=== PATIENT | female | born 1985 | race Asian ===

== ENCOUNTER 2025-01-12 14:38 | Outpatient (AMB) | payer OTHER, SELFPAY ==
--- NOTE | 2025-01-12 14:45 | MHC.OFFVIS ---
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 She had episodes of palpitations in the past and went to emergency department in [facility]. Her has been had the ECG strips from there and the rhythm appeared to be SVT. She was treated as SVT with IV verapamil. She has not had any significant episodes of palpitations recently. She did have an episode of left-sided chest pain for which she went to the emergency department. This pain was pleuritic in nature. She had workup including troponin, D-dimer done which was negative. Her thyroid profile was also normal at that time. She was discharged home and was told that she potentially has musculoskeletal pain which I agree with. She has not had further chest pains since then. Denying any other complaints currently. Not taking any regular medications but does take some homeopathic medicine for palpitations. [facility] Medical History (Updated 01/12/25 @ 15:26 by Gordon De Leon MD) Appendix abscess Family History (Updated 01/12/25 @ 14:52 by Joanna Maki CMA) Father Stented coronary artery Social History (Updated 01/12/25 @ 14:52 by Joanna Maki CMA) Alcohol intake: never Patient Tobacco Use Status: Never used Tobacco Review of Systems Const Denies chills, Denies fatigue, Denies fever(s), Denies frequent falls, Denies weakness, Denies weight gain and Denies weight loss ENT Denies dizziness Card Denies chest pain, Denies leg edema, Denies lightheadedness, Denies palpitations, Denies dyspnea, Denies dyspnea on exertion and Denies orthopnea Resp Denies cough, Denies dyspnea and Denies dyspnea on exertion GI Denies bloating and Denies change in bowel habits Musc Denies muscle weakness, Denies numbness and Denies tingling Neuro Denies dizziness, Denies frequent falls, Denies numbness, Denies tingling and Denies weakness Endo Denies fatigue and Denies palpitations Physical Exam Vital Signs: Last Vital Signs Pulse 95 01/12/25 14:47 BP 134/64 01/12/25 14:47 BMI result Body Mass Index 24.4 GENERAL APPEARANCE: in no acute distress, pleasant. NECK: no carotid bruit, no jugular venous distention. SKIN: no suspicious lesions, warm and dry. HEART: no murmurs, regular rate and rhythm. LUNGS: clear to auscultation bilaterally. ABDOMEN: soft, nontender. EXTREMITIES: no edema. PERIPHERAL PULSES: equal. NEUROLOGIC: No gross deficits, AAO X 3 Office Procedures EKG Details: Sinus rhythm 92 beats per minute, normal ECG, QTC 437 milliseconds. [id number], Complete Assessment & Plan Assessment & Plan (1) SVT (supraventricular tachycardia): Code(s): I47.10 - Supraventricular tachycardia, unspecified Category: Medical Plan Pleasant 39 year female with supraventricular tachycardia. She had ECG strips from [place] which clearly are showing SVT. She also responded to IV verapamil. She is describing vagal maneuvers being done by the physicians in [place] 2. She had echocardiography couple of years ago which was essentially normal. I have given her the options of medical management versus ablation. Currently with infrequent symptoms she wishes to wait. I have taught her simple vagal maneuvers to see if she can break these episodes on her own at home. If she had frequent episodes then she will reach out to us when we will consider ablation. I will give her low-dose verapamil to be used as needed in case she has an episode. She understands that this may not work and she may have to go to emergency department. Thank you for allowing me to participate in the care of your patient. Please feel free to contact me if you have any questions. Medications: New verapamil 40 mg PO BID PRN 60 tabs 0RF palpitations I47.10 - Supraventricular tachycardia, unspecified Coding Level of Care Code New Pt Level 4 (43942) Diagnoses SVT (supraventricular tachycardia) I47.10 CPT Codes EKG - CPT: 15466-[id number], Complete ([id number])
[2025-01-12 14:47] VITALS: BP 134/64; PULSE 95; BMI 24.4
--- OUTSIDE RECORDS SUMMARY | 2025-01-12 16:45 | XMS_ITS | Clinical Summary ---
Author Organization [facility] Address [address] [place] [address] Phone Care Team Providers Care Ep Specialist Name Role Phone Physician, Pcp Unknown Primary Care Provider Nahed vailable Allergies No known active allergies Medications No known medications Active Problems No known active problems Encounters Date Type Department Care Team Description 12/27/2024 3:18 AM EST - 12/27/2024 10:47 AM EST Emergency [facility] Emergency [address] [place] [address] [phone] Mamadou Ford MD Palpitations (Primary Dx) Discharge Disposition: Home or Self Care 12/25/2024 9:07 PM EST - 12/25/2024 11:07 PM EST [facility] Emergency [address] [place] [phone] Discharge Disposition: Left Against Medical Advice from Last 3 Months Medical History Medical History Date Comments Palpitations Social History Tobacco Use Types Packs/Day Years Used Date Smoking Tobacco: Never Smokeless Tobacco: Never Tobacco Cessation:Counseling Given: Not Answered Alcohol Use Standard Drinks/Week Comments Never 0 (1 standard drink = 0.6 oz pur e alcohol) Comments Unknown Sex and Gender Information Value Date Recorded Sex Assigned at Female 12/25/2024 11:02 PM EST Legal Sex Female 9:07 PM EST Gender Identity Female 12/25/2024 11:02 PM EST Sexual Orientation Straight 12/25/2024 11 :02 PM EST Obstetrics History Last Filed Vital Signs Vital Sign Reading Time Taken Comments Blood Pressure 111/78 12/27/2024 10:38 AM EST Pulse 102 12/27/2024 10:38 AM EST Temperature 36.8 ??C (98.2 ??F) 12/27/2024 9:43 AM ES T Respiratory Rate 22 12/27/2024 10:38 AM EST Oxygen Saturation 98% 12/27/2024 10:38 AM EST Inhaled Oxygen Concentration - - Weight 81.6 kg (180 lb) 12/25/2024 9:53 PM EST Height 157.5 cm (5' 2 ) 12/25/2024 9:53 PM EST Body Mass Index 32.92 12/25/2024 9:53 PM EST Plan of Treatment Health Maintenance Due Date Last Done Comments Breast Cancer Screening 1983 DTaP,Tdap,and Td Vaccines (1 - Tdap) 2002 Hepatitis B Vaccines (1 of 3 - 19+ 3-dose series) 2002 Cervical Cancer Screening: P ap Smear 2004 COVID-19 Vaccine ( - 2023-2 5 season) 2024 Influenza Vaccine (#1) 2024 Depression Screening 12/26/2024 HIV Screening 12/26/2024 Hepatitis C Screening 12/26/2024 Social Influencers of Health Screening 12/26/2024 HIB Vaccines Aged Out No longer eligi ble based on patient's age to complete this topic HPV Vaccines Aged Out No longer eligi ble based on patient's age to complete this topic Hepatitis A Vaccines Aged Out No long er eligible based on patient's age to complete this topic IPV Vaccines Aged Out No longer eligi ble based on patient's age to complete this topic MMR Vaccines Aged Out No longer eligi ble based on patient's age to complete this topic Meningococcal ACWY Vaccine Aged Out N o longer eligible based on patient's age to complete this topic Meningococcal B Vacine Aged Out No lo nger eligible based on patient's age to complete this topic Pneumococcal Vaccine: Pediat rics (0 to 5 Years) and At-Risk Patients (6 to 64 Years) Aged Out No longer eligible b ased on patient's age to complete this topic RSV Immunization Patients Un noe 20 months Aged Out No longer eligible b ased on patient's age to complete this topic Varicella Vaccines Aged Out No longer eligible based on patient's age to complete this topic Procedures Procedure Name Priority Date/Time Associated Diagnosis Comments ECG ANNOTATED 12/29/2024 XR CHEST 2 VIEWS STAT 12/27/2024 6:20 AM EST D-DIMER STAT 12/27/2024 4:26 AM EST BASIC METABOLIC PANEL Routine 12/26/2024 5:49 PM EST THYROID STIMULATING HORMONE WITH REFLEX TO FREE T4 AND FREE T3 STAT Add-on 12/26/2024 5:49 PM EST CBC WITH AUTO DIFFERENTIAL STAT 12/26/2024 5:49 PM EST B-TYPE NATRIURETIC PEPTIDE STAT 12/26/2024 5:49 PM EST MAGNESIUM STAT 12/26/2024 5:49 PM EST LIPASE STAT 12/26/2024 5:49 PM EST CBC AND DIFFERENTIAL STAT 12/26/2024 5:49 PM EST TROPONIN I HIGH SENSITIVITY STAT 12/26/2024 5:49 PM EST ECG 12-LEAD STAT 12/26/2024 5:43 PM EST ECG ANNOTATED 12/26/2024 XR CHEST 2 VIEWS STAT 12/25/2024 9:48 PM EST CBC WITH AUTO DIFFERENTIAL STAT 12/25/2024 9:31 PM EST MAGNESIUM STAT 12/25/2024 9:31 PM EST LIPASE STAT 12/25/2024 9:31 PM EST COMPREHENSIVE METABOLIC PANEL STAT 12/25/2024 9:31 PM EST CBC AND DIFFERENTIAL STAT 12/25/2024 9:31 PM EST TROPONIN I HIGH SENSITIVITY STAT 12/25/2024 9:31 PM EST ECG 12-LEAD STAT 12/25/2024 9:25 PM EST from Last 3 Months Results * ECG-Annotated (12/29/2024) Only the most recent of2 resultswithin the time period is included. us Provider Onbase MD ECG ORDERABLES Final Result * XR Chest 2 Views (12/27/2024 6:20 AM EST) Only the most recent of2 resultswithin the time period is included. Anatomical Region Laterality Modality Body Radiographic Brit ging 12/27/2024 8:56 AM EST Impressions 12/27/2024 8:57 AM EST No evidence of active pulmonary disease. No significant change from the prior study. -------- FINAL REPORT -------- Dictated By: Haley Paz Dictated Date: 12/27/2024 08:56 ET Assigned Physician: Haley Paz Reviewed and Electronically Signed By: Haley Paz Signed Date: 12/27/2024 08:57 ET Workstation ID: [id number] Transcribed By: Self Edit Transcribed Date: 12/27/2024 08:56 ET Narrative 12/27/2024 8:57 AM EST INDICATION: Chest pain FINDINGS: Two views of the chest were obtained. Compared to study from December 25, 2024. Lung lopez are mildly hypoinflated but clear. Cardiomediastinal silhouette is normal in size and shape. Bony structures are within normal limits for the patient's age. Procedure Note Haely Paz MD - 12/27/2024 INDICATION: Chest pain FINDINGS: Two views of the chest were obtained. Compared to study fromDecember 25, 2024. Lung lopez are mildly hypoinflated but clear. Cardiomediastinal silhouette is normal in size and shape. Bony structures are within normal limits for the patient's age. IMPRESSION: No evidence of active pulmonary disease. No significant change from theprior study. -------- FINAL REPORT -------- Dictated By: Haley Paz Dictated Date: 12/27/2024 08:56 ET Assigned Physician: Haley Paz Reviewed and Electronically Signed By: Haley Paz Signed Date: 12/27/2024 08:57 ET Workstation ID: [id number] Transcribed By: Self Edit Transcribed Date: 12/27/2024 08:56 ET Shakeel Yancey MD IMG XR PROCEDURES Final Result * D-dimer, quantitative (12/27/2024 4:26 AM EST) [facility] D-Dimer, Quant (D-DU) 194 <=230 ng/mL DDU LAB COAGULATION METHOD 12/27/2024 5:25 AM EST [facility] Blood Venous blood specimen / Unknown Venipuncture / Unknown 12/27/2024 4:26 AM EST 12/27/2024 5:04 AM EST Narrative [facility] - 12/27/2024 5:25 AM EST D-Dimer <230 ng/mL (D-Dimer units) is the threshold for exclusion of DVT/PE. D-Dimer may be elevated in: Critically ill, severely infected, trauma patients, DIC, acute CVA, acute SD, unstable angina, AF, old age, , and smoking. D-Dimer may be decreased with: Initiation of heparin therapy and oral anticoagulants. Mamadou Ford MD LAB BLOOD ORDERABLES Final Result [facility] [address] [place] [address], * Troponin I high sensitivity (12/26/2024 5:49 PM EST) Only the most recent of2 resultswithin the time period is included. [facility] High Sensitivity Troponin I <3 <=54 ng/L LAB CHEMISTRY METHOD 12/26/2024 6:22 PM EST [facility] Blood Venous blood specimen / Unknown Venipuncture / Unknown 12/26/2024 5:49 PM EST 12/26/2024 5:54 PM EST Narrative [facility] - 12/26/2024 6:22 PM EST High levels of biotin in samples may falsely decrease hsTroponin values. ??Use caution when interpreting hsTroponin results in patients taking biotin who exhibit renal impairment (eGFR <60) or in patients taking more than 20 mg/day of biotin. Shakeel Yancey MD LAB BLOOD ORDERABLES Final Resu lt Performing Organization Address [facility]/ZIP Co de Phone Number [facility] [address] [place] [address], [place] [phone] * Thyroid stimulating hormone with reflex to free t4 and free t3 (TSH Reflex) (12/26/2024 5:49 PM EST) TSH 2.90 0.40 - 4.00 mcIU/mL LAB CHEMISTRY METHOD 12/27/2024 4:14 AM EST [facility] Blood Venous blood specimen / Unknown Venipuncture / Unknown 12/26/2024 5:49 PM EST 12/26/2024 5:54 PM EST Mamadou Ford MD LAB BLOOD ORDERABLES Final Result Performing Organization Address [facility] Co de Phone Number [facility] [address] [place] [address], [place] [phone] * (ABNORMAL) CBC auto differential (12/26/2024 5:49 PM EST) Only the most recent of2 resultswithin the time period is included. WBC 9.5 4.8 - 10.8 K/mcL LAB HEMETOLOGY METHOD 12/26/2024 6:04 PM EST [facility] RBC 4.40 3.80 - 4.80 M/mcL LAB HEMETOLOGY METHOD 12/26/2024 6:04 PM EST [facility] Hemoglobin 13.1 11.5 - 16.0 g/dL LAB HEMETOLOGY METHOD 12/26/2024 6:04 PM [facility] Hematocrit 41.0 35.0 - 47.0 % LAB HEMETOLOGY METHOD 12/26/2024 6:04 PM [facility] MCV 92.8 79.0 - 98.0 FL LAB HEMETOLOGY METHOD 12/26/2024 6:04 PM [facility] MCH 29.6 27.0 - 32.0 pcg LAB HEMETOLOGY METHOD 12/26/2024 6:04 PM [facility] MCHC 32.0 32.0 - 37.0 g/dL LAB HEMETOLOGY METHOD 12/26/2024 6:04 PM [facility] RDW 13.0 11.0 - 15.0 % LAB HEMETOLOGY METHOD 12/26/2024 6:04 PM [facility] Platelets 302 130 - 400 K/mcL LAB HEMETOLOGY METHOD 12/26/2024 6:04 PM [facility] MPV 10.4 7.0 - 11.0 FL LAB HEMETOLOGY METHOD 12/26/2024 6:04 PM [facility] NRBC 0.0 <1.0 % LAB HEMETOLOGY METHOD 12/26/2024 6:04 PM [facility] NRBC Absolute 0.00 <0.10 K/mcL LAB HEMETOLOGY METHOD 12/26/2024 6:04 PM [facility] Neutrophils Relative 65.2 % LAB HEMETOLOGY METHOD 12/26/2024 6:04 PM [facility] Lymphocytes Relative 26.2 % LAB HEMETOLOGY METHOD 12/26/2024 6:04 PM [facility] Monocytes Relative 4.2 % LAB HEMETOLOGY METHOD 12/26/2024 6:04 PM [facility] Eosinophils Relative 3.5 % LAB HEMETOLOGY METHOD 12/26/2024 6:04 PM EST [facility] Basophils Relative 0.5 % LAB HEMETOLOGY METHOD 12/26/2024 6:04 PM [facility] Immature Granulocytes Relative 0.4 % LAB HEMETOLOGY METHOD 12/26/2024 6:04 PM [facility] Neutrophils Absolute 6.15 1.50 - 7.00 K/mcL LAB HEMETOLOGY METHOD 12/26/2024 6:04 PM EST [facility] Lymphocytes Absolute 2.48 1.00 - 5.00 K/mcL LAB HEMETOLOGY METHOD 12/26/2024 6:04 PM [facility] Monocytes Absolute 0.40 0.20 - 1.00 K/mcL LAB HEMETOLOGY METHOD 12/26/2024 6:04 PM [facility] Eosinophils Absolute 0.33 0.00 - 0.50 K/mcL LAB HEMETOLOGY METHOD 12/26/2024 6:04 PM EST [facility] Basophils Absolute 0.05 0.00 - 0.20 K/mcL LAB HEMETOLOGY METHOD 12/26/2024 6:04 PM [facility] Immature Granulocytes Absolute 0.04(H) 0.00 - 0.03 K/mcL LAB HEMETOLOGY METHOD 12/26/2024 6:04 PM [facility] Blood Venous blood specimen / Unknown Venipuncture / Unknown 12/26/2024 5:49 PM EST 12/26/2024 5:54 PM EST us Shakeel B Bc WARD LAB BLOOD ORDERABLES Final Resu lt [facility] [address] [place] [address], * B-type natriuretic peptide (12/26/2024 5:49 PM EST) BNP 7 <=100 pcg/mL LAB CHEMISTRY METHOD 12/26/2024 6:33 PM EST [facility] Blood Venous blood specimen / Unknown Venipuncture / Unknown 12/26/2024 5:49 PM EST 12/26/2024 5:54 PM EST Shakeel Norbert Yancey MD LAB BLOOD ORDERABLES Final Resu lt Performing Organization Address City/[facility]/ZIP Co de Phone Number [facility] [address] [place] [address], [place] [phone] * Magnesium (12/26/2024 5:49 PM EST) Only the most recent of2 resultswithin the time period is included. Magnesium 2.3 1.9 - 2.6 mg/dL LAB CHEMISTRY METHOD 12/26/2024 6:38 PM EST [facility] Blood Venous blood specimen / Unknown Venipuncture / Unknown 12/26/2024 5:49 PM EST 12/26/2024 5:54 PM EST [facility] LAB BLOOD ORDERABLES Final Resu lt Performing Organization Address [facility] Co de Phone Number [facility] [address] [place] [address], [place] [phone] * Lipase (12/26/2024 5:49 PM EST) Only the most recent of2 resultswithin the time period is included. Lipase 39 13 - 75 unit/L LAB CHEMISTRY METHOD 12/26/2024 6:38 PM EST [facility] Blood Venous blood specimen / Unknown Venipuncture / Unknown 12/26/2024 5:49 PM EST 12/26/2024 5:54 PM EST Shakeeljanet Yancey MD LAB BLOOD ORDERABLES Final Resu lt [facility] [address] [place] [address], * (ABNORMAL) Basic metabolic panel (12/26/2024 5:49 PM EST) Sodium 137 133 - 145 mmol/L LAB CHEMISTRY METHOD 12/27/2024 6:37 AM [facility] Potassium 3.8 3.5 - 5.5 mmol/L LAB CHEMISTRY METHOD 12/27/2024 6:37 AM [facility] Chloride 107 96 - 110 mmol/L LAB CHEMISTRY METHOD 12/27/2024 6:37 AM [facility] CO2 21 21 - 32 mmol/L LAB CHEMISTRY METHOD 12/27/2024 6:37 AM [facility] Anion Gap 9 3 - 11 LAB CHEMISTRY METHOD 12/27/2024 6:37 AM [facility] Glucose 126(H) 70 - 100 mg/dL LAB CHEMISTRY METHOD 12/27/2024 6:37 AM [facility] BUN 10 5 - 25 mg/dL LAB CHEMISTRY METHOD 12/27/2024 6:37 AM [facility] Creatinine 0.77 0.50 - 1.10 mg/dL LAB CHEMISTRY METHOD 12/27/2024 6:37 AM [facility] eGFR 100 >=60 mL/min/1. 73m2 LAB CHEMISTRY METHOD 12/27/2024 6:37 AM [facility] Comment:Calculation based on the??Chronic Kidney Disease Epidemiology Collaboration (CKD-EPI) equation refit??without adjustment for race. BUN/Creatinine Ratio 13.0 LAB CHEMISTRY METHOD 12/27/2024 6:37 AM [facility] Calcium 9.3 8.5 - 10.5 mg/dL LAB CHEMISTRY METHOD 12/27/2024 6:37 AM [facility] Blood Venous blood specimen / Unknown Venipuncture / Unknown 12/26/2024 5:49 PM EST 12/26/2024 5:54 PM EST Mamadou Ford MD LAB BLOOD ORDERABLES Final Result Performing Organization Address [facility]/ZIP Co de Phone Number [facility] [address] [place] [address], [place] [phone] * ECG 12 lead (12/26/2024 5:43 PM EST) Only the most recent of2 resultswithin the time period is included. Ventricular Rate ECG 87 BPM GEMUSE Atrial Rate 87 BPM GEMUSE P-R Interval 144 ms GEMUSE QRS Duration 74 ms GEMUSE Q-T Interval 358 ms GEMUSE QTc 430 ms GEMUSE P Wave [place] 62 degrees GEMUSE R [place] 68 degrees GEMUSE T [place] 53 degrees GEMUSE ECG Interpretation Normal sinus rhythm Normal ECG When compared with ECG of 25-DEC-2024 21:25, (unconfirmed) No significant change was found Confirmed by LIZA LUGO ([id number]) on 12/27/2024 3:21:13 PM GEMUSE 12/26/2024 5:43 PM EST 12/27/2024 3:21 PM EST Shakeel Yancey MD ECG ORDERABLES Final Result Performing Organization Address [facility] Co de Phone Number GEMUSE * (ABNORMAL) Comprehensive metabolic panel (12/25/2024 9:31 PM EST) Sodium 140 133 - 145 mmol/L LAB CHEMISTRY METHOD 12/25/2024 10:10 PM EST [facility] Potassium 3.9 3.5 - 5.5 mmol/L LAB CHEMISTRY METHOD 12/25/2024 10:10 PM EST [facility] Chloride 110 96 - 110 mmol/L LAB CHEMISTRY METHOD 12/25/2024 10:10 PM EST [facility] CO2 24 21 - 32 mmol/L LAB CHEMISTRY METHOD 12/25/2024 10:10 PM [facility] Anion Gap 6 3 - 11 LAB CHEMISTRY METHOD 12/25/2024 10:10 PM [facility] Glucose 111(H) 70 - 100 mg/dL LAB CHEMISTRY METHOD 12/25/2024 10:10 PM [facility] BUN 14 5 - 25 mg/dL LAB CHEMISTRY METHOD 12/25/2024 10:10 PM [facility] Creatinine 0.88 0.50 - 1.10 mg/dL LAB CHEMISTRY METHOD 12/25/2024 10:10 PM [facility] eGFR 85 >=60 mL/min/1. 73m2 LAB CHEMISTRY METHOD 12/25/2024 10:10 PM [facility] Comment:Calculation based on the??Chronic Kidney Disease Epidemiology Collaboration (CKD-EPI) equation refit??without adjustment for race. BUN/Creatinine Ratio 15.9 LAB CHEMISTRY METHOD 12/25/2024 10:10 PM [facility] Calcium 8.8 8.5 - 10.5 mg/dL LAB CHEMISTRY METHOD 12/25/2024 10:10 PM [facility] AST (SGOT) 19 10 - 42 unit/L LAB CHEMISTRY METHOD 12/25/2024 10:10 PM [facility] ALT (SGPT) 23 10 - 60 unit/L LAB CHEMISTRY METHOD 12/25/2024 10:10 PM [facility] Alkaline Phosphatase 60 42 - 121 unit/L LAB CHEMISTRY METHOD 12/25/2024 10:10 PM [facility] Total Protein 7.2 6.0 - 8.0 g/dL LAB CHEMISTRY METHOD 12/25/2024 10:10 PM [facility] Albumin 3.6 3.2 - 5.0 g/dL LAB CHEMISTRY METHOD 12/25/2024 10:10 PM [facility] Total Bilirubin 0.2 0.0 - 1.4 mg/dL LAB CHEMISTRY METHOD 12/25/2024 10:10 PM EST [facility] Blood Venous blood specimen / Unknown Venipuncture / Unknown 12/25/2024 9:31 PM EST 12/25/2024 9:47 PM EST us Davin Mak DO LAB BLOOD ORDERABLES Final Resu lt [facility] [address] [place] [address], from Last 3 Months Insurance MEDICAID - [place] Care Teams Ep Specialist Relationship Specialty Start Date End Date Physician, Pcp Unknown PCP - General 12/27/24
--- OUTSIDE RECORDS SUMMARY | 2025-01-12 16:45 | XMS_ITS | Encounter Summary ---
Author Organization [facility] Address [address] [place] [address] Care Team Providers Care Color Printer Operator Name Role Phone Physician, Pcp Unknown Primary Care Provider Nahed vailable Reason for Visit * Reason Comments Chest Pain Radiates down left a rm. X 3 hours Encounter Details Date Type Department Care Team (Late st Contact Info) Description 12/25/2024 9:07 PM EST - 12/25/2024 11:[address] [facility] Emergency [address] [place] [id number] Discharge Disposition: Left Against Medical Advice Social History Tobacco Use Types Packs/Day Years [...] Orientation Straight 12/25/2024 11 :02 PM EST documented as of this encounter Last Filed Vital Signs Vital Sign Reading Time Taken Comments Blood Pressure 111/74 12/25/2024 9:53 PM EST Pulse 102 12/25/2024 9:53 PM EST Temperature 36.6 ??C (97.9 ??F) 12/25/2024 9:53 PM ES T Respiratory Rate 18 12/25/2024 9:53 PM EST Oxygen Saturation 99% 12/25/2024 9:53 PM EST Inhaled Oxygen Concentration - - Weight 81.6 kg (180 lb) 12/25/2024 9:53 PM EST Height 157.5 cm (5' 2 ) 12/25/2024 9:53 PM EST Body Mass Index 32.92 12/25/2024 9:53 PM EST documented in this encounter Discharge Disposition Disposition Code Departure Means Destination Left Against Medical Advice documented in this encounter Progress Notes * Hector Gregg RN - 12/25/2024 9:47 PM EST Patient presents to the ER with her significant other, patient stating that she has been having left-sided chest pain that radiates to left arm for 3 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 Described that chest feels heavy especially when I take a deep breath I feels very heavy on my heart and feels heavy on my left arm too . Patient rated the pain at 7 out of 10 on 0-10 pain scale. Denies other symptoms. documented in this encounter Plan of Treatment Not on file documented as of this encounter Procedures Procedure Name Priority Date/Time Associated Diagnosis Comments ECG ANNOTATED 12/26/2024 XR CHEST 2 VIEWS STAT 12/25/2024 9:48 PM EST TROPONIN I HIGH SENSITIVITY STAT 12/25/2024 9:31 PM EST CBC WITH AUTO DIFFERENTIAL STAT 12/25/2024 9:31 PM EST CBC AND DIFFERENTIAL STAT 12/25/2024 9:31 PM EST MAGNESIUM STAT 12/25/2024 9:31 PM EST LIPASE STAT 12/25/2024 9:31 PM EST COMPREHENSIVE METABOLIC PANEL STAT 12/25/2024 9:31 PM EST ECG 12-LEAD STAT 12/25/2024 9:25 PM EST documented in this encounter Results * ECG-Annotated (12/26/2024) us Provider Onbase MD ECG ORDERABLES Final Result * XR Chest 2 Views (12/25/2024 9:48 PM EST) Anatomical Region Laterality Modality Body Radiographic Brit ging 12/26/2024 8:37 AM EST Impressions 12/26/2024 8:38 AM EST Normal examination. Code 01069 -------- FINAL REPORT -------- Dictated By: Jorge Luis Wilson Dictated Date: 12/26/2024 08:37 ET Assigned Physician: Jorge Luis Wilson Reviewed and Electronically Signed By: Jorge Luis Wilson Signed Date: 12/26/2024 08:38 ET Workstation ID: [id number] Transcribed By: Self Edit Transcribed Date: 12/26/2024 08:37 ET Narrative 12/26/2024 8:38 AM EST HISTORY: The patient is a 39-year-old female with chest pain. FINDINGS: PA and lateral radiographs of the chest, without previous for comparison, demonstrate normal appearance of the bony structures. The cardiac and mediastinal contours are within normal limits. The lungs and costophrenic angles are clear. Procedure Note Jorge Luis Wislon MD - 12/26/2024 HISTORY: The patient is a 39-year-old female with chest pain. FINDINGS: PA and lateral radiographs of the chest, without previous forcomparison, demonstrate normal appearance of the bony structures. Thecardiac and mediastinal contours are within normal limits. The lungs andcostophrenic angles are clear. IMPRESSION: Normal examination. Code 41079 -------- FINAL REPORT -------- Dictated By: Jorge Luis Wilson Dictated Date: 12/26/2024 08:37 ET Assigned Physician: Jorge Luis Wilson Reviewed and Electronically Signed By: Jorge Luis Wilson Signed Date: 12/26/2024 08:38 ET Workstation ID: [id number] Transcribed By: Self Edit Transcribed Date: 12/26/2024 08:37 ET us Davin Sergbrenda Mak DO IMG XR PROCEDURES Final Result * CBC auto differential (12/25/2024 9:31 PM EST) WBC 10.2 4.8 - 10.8 K/mcL LAB HEMETOLOGY METHOD 12/25/2024 9:[address] [facility] RBC 4.30 3.80 - 4.80 M/mcL LAB HEMETOLOGY METHOD 12/25/2024 9:[address] [facility] Hemoglobin 12.6 11.5 - 16.0 g/dL LAB HEMETOLOGY METHOD 12/25/2024 9:[address] [facility] Hematocrit 38.8 35.0 - 47.0 % LAB HEMETOLOGY METHOD 12/25/2024 9:[address] [facility] MCV 89.4 79.0 - 98.0 FL LAB HEMETOLOGY METHOD 12/25/2024 9:[address] [facility] MCH 29.0 27.0 - 32.0 pcg LAB HEMETOLOGY METHOD 12/25/2024 9:[address] [facility] MCHC 32.5 32.0 - 37.0 g/dL LAB HEMETOLOGY METHOD 12/25/2024 9:[address] [facility] RDW 13.1 11.0 - 15.0 % LAB HEMETOLOGY METHOD 12/25/2024 9:[address] [facility] Platelets 305 130 - 400 K/mcL LAB HEMETOLOGY METHOD 12/25/2024 9:[address] [facility] MPV 10.3 7.0 - 11.0 FL LAB HEMETOLOGY METHOD 12/25/2024 9:[address] [facility] NRBC 0.0 <1.0 % LAB HEMETOLOGY METHOD 12/25/2024 9:[address] [facility] NRBC Absolute 0.00 <0.10 K/mcL LAB HEMETOLOGY METHOD 12/25/2024 9:[address] [facility] Neutrophils Relative 64.0 % LAB HEMETOLOGY METHOD 12/25/2024 9:[address] [facility] Lymphocytes Relative 26.6 % LAB HEMETOLOGY METHOD 12/25/2024 9:[address] [facility] Monocytes Relative 5.4 % LAB HEMETOLOGY METHOD 12/25/2024 9:[address] [facility] Eosinophils Relative 3.4 % LAB HEMETOLOGY METHOD 12/25/2024 9:[address] [facility] Basophils Relative 0.3 % LAB HEMETOLOGY METHOD 12/25/2024 9:[address] [facility] Immature Granulocytes Relative 0.3 % LAB HEMETOLOGY METHOD 12/25/2024 9:[address] [facility] Neutrophils Absolute 6.51 1.50 - 7.00 K/mcL LAB HEMETOLOGY METHOD 12/25/2024 9:[address] [facility] Lymphocytes Absolute 2.71 1.00 - 5.00 K/mcL LAB HEMETOLOGY METHOD 12/25/2024 9:[address] [facility] Monocytes Absolute 0.55 0.20 - 1.00 K/mcL LAB HEMETOLOGY METHOD 12/25/2024 9:[address] [facility] Eosinophils Absolute 0.35 0.00 - 0.50 K/mcL LAB HEMETOLOGY METHOD 12/25/2024 9:[address] [facility] Basophils Absolute 0.03 0.00 - 0.20 K/mcL LAB HEMETOLOGY METHOD 12/25/2024 9:[address] [facility] Immature Granulocytes Absolute 0.03 0.00 - 0.03 K/mcL LAB HEMETOLOGY METHOD 12/25/2024 9:[address] [facility] Blood Venous blood specimen / Unknown Venipuncture / Unknown 12/25/2024 9:31 PM EST 12/25/2024 9:47 PM EST us Tae Hyong Aubree DO LAB BLOOD ORDERABLES Final Resu lt Performing Organization Address [facility]/ZIP Co de Phone Number [facility] [address] [place] [address], [place] [phone] * Troponin I high sensitivity (12/25/2024 9:31 PM EST) Pathologist [facility] High Sensitivity Troponin I <3 <=54 ng/L LAB CHEMISTRY METHOD 12/25/2024 10:09 PM EST [facility] Blood Venous blood specimen / Unknown Venipuncture / Unknown 12/25/2024 9:31 PM EST 12/25/2024 9:47 PM EST Narrative [facility] - 12/25/2024 10:09 PM EST High levels of biotin in samples may falsely decrease hsTroponin values. ??Use caution when interpreting hsTroponin results in patients taking biotin who exhibit renal impairment (eGFR <60) or in patients taking more than 20 mg/day of biotin. Davin Mak LAB BLOOD ORDERABLES Final Resu lt Performing Organization Address [facility] Co de Phone Number [facility] [address] [place] [address], [place] [phone] * Magnesium (12/25/2024 9:31 PM EST) [facility] Magnesium 2.3 1.9 - 2.6 mg/dL LAB CHEMISTRY METHOD 12/25/2024 10:10 PM EST [facility] Blood Venous blood specimen / Unknown Venipuncture / Unknown 12/25/2024 9:31 PM EST 12/25/2024 9:47 PM EST Davin Mak DO LAB BLOOD ORDERABLES Final Resu lt Performing Organization Address City/[facility]/ZIP Co de Phone Number [facility] [address] [place] [address], [place] [phone] * Lipase (12/25/2024 9:31 PM EST) Lipase 39 13 - 75 unit/L LAB CHEMISTRY METHOD 12/25/2024 10:[address] [facility] Blood Venous blood specimen / Unknown Venipuncture / Unknown 12/25/2024 9:31 PM EST 12/25/2024 9:47 PM EST us Davin Mak DO LAB BLOOD ORDERABLES Final Resu lt [facility] [address] [place] [address], * (ABNORMAL) Comprehensive metabolic panel (12/25/2024 9:31 PM EST) Sodium 140 133 - 145 mmol/L LAB CHEMISTRY METHOD 12/25/2024 10:[address] [facility] Potassium 3.9 3.5 - 5.5 mmol/L LAB CHEMISTRY METHOD 12/25/2024 10:[address] [facility] Chloride 110 96 - 110 mmol/L LAB CHEMISTRY METHOD 12/25/2024 10:[address] [facility] CO2 24 21 - 32 mmol/L LAB CHEMISTRY METHOD 12/25/2024 10:[address] [facility] Anion Gap 6 3 - 11 LAB CHEMISTRY METHOD 12/25/2024 10:[address] [facility] Glucose 111(H) 70 - 100 mg/dL LAB CHEMISTRY METHOD 12/25/2024 10:[address] [facility] BUN 14 5 - 25 mg/dL LAB CHEMISTRY METHOD 12/25/2024 10:[address] [facility] Creatinine 0.88 0.50 - 1.10 mg/dL LAB CHEMISTRY METHOD 12/25/2024 10:[address] [facility] eGFR 85 >=60 mL/min/1. 73m2 LAB CHEMISTRY METHOD 12/25/2024 10:[address] [facility] Comment:Calculation based on the??Chronic Kidney Disease Epidemiology Collaboration (CKD-EPI) equation refit??without adjustment for race. BUN/Creatinine Ratio 15.9 LAB CHEMISTRY METHOD 12/25/2024 10:[address] [facility] Calcium 8.8 8.5 - 10.5 mg/dL LAB CHEMISTRY METHOD 12/25/2024 10:[address] [facility] AST (SGOT) 19 10 - 42 unit/L LAB CHEMISTRY METHOD 12/25/2024 10:[address] [facility] ALT (SGPT) 23 10 - 60 unit/L LAB CHEMISTRY METHOD 12/25/2024 10:[address] [facility] Alkaline Phosphatase 60 42 - 121 unit/L LAB CHEMISTRY METHOD 12/25/2024 10:[address] [facility] Total Protein 7.2 6.0 - 8.0 g/dL LAB CHEMISTRY METHOD 12/25/2024 10:[address] [facility] Albumin 3.6 3.2 - 5.0 g/dL LAB CHEMISTRY METHOD 12/25/2024 10:[address] [facility] Total Bilirubin 0.2 0.0 - 1.4 mg/dL LAB CHEMISTRY METHOD 12/25/2024 10:[address] [facility] Blood Venous blood specimen / Unknown Venipuncture / Unknown 12/25/2024 9:31 PM EST 12/25/2024 9:47 PM EST us Davin Mak DO LAB BLOOD ORDERABLES Final Resu lt [facility] [address] [place] [address], [place] [phone] * ECG 12 lead (12/25/2024 9:25 PM EST) Ventricular Rate ECG 107 BPM GEMUSE Atrial Rate 107 BPM GEMUSE P-R Interval 132 ms GEMUSE QRS Duration 72 ms GEMUSE Q-T Interval 338 ms GEMUSE QTc 451 ms GEMUSE P Wave [place] 61 degrees GEMUSE R [place] 55 degrees GEMUSE T [place] 31 degrees GEMUSE ECG Interpretation Sinus tachycardia Possible Left atrial enlargement Borderline ECG No previous ECGs available Confirmed by LIZA LUGO ([id number]) on 12/27/2024 2:53:39 PM GEMUSE 12/25/2024 9:25 PM EST 12/27/2024 2:53 PM EST us Davin Mak DO ECG ORDERABLES Final Result GEMUSE documented in this encounter Visit Diagnoses Not on filedocumented in this encounter Orders EKG Orders Without Results Count Last Ordered D ate First Ordered Date ECG 12-LEAD 1 12/25/2024 documented in this encounter Care Teams Color Printer Operator Relationship Specialty Start Date End Date Physician, Pcp Unknown PCP - General 12/25/24 12/26/24 documented as of this encounter
--- OUTSIDE RECORDS SUMMARY | 2025-01-12 16:45 | XMS_ITS | Encounter Summary ---
Author Organization [facility] Address [address] [place] [address] Care Team Providers Care Process Trainer Name Role Phone Physician, Pcp Unknown Primary Care Provider Nahed vailable Reason for Visit * Reason Comments Chest Pain Pt was here last nig ht, pt reports chest pain is worsening and it radiates to her left hand. Encounter Details Date Type Department Care Team (Late st Contact Info) Description 12/27/2024 3:18 AM EST - 12/27/2024 10:47 AM EST Emergency [facility] Emergency [address] [place] [address] Mamadou Ford MD [address] [address] Palpitations (Primary Dx) Discharge Disposition: Home or Self Care Social History Tobacco Use Types Packs/Day Years Used Date Smoking Tobacco: Never Smokeless Tobacco: Never Alcohol Use Standard Drinks/Week Comments Never 0 [...] EST Inhaled Oxygen Concentration - - Weight - - Height - - Body Mass Index - - documented in this encounter Discharge Instructions * Attachments The following attachments cannot be sent through Care Everywhere. * Holter Monitoring (Taiwanese) * Palpitations (Taiwanese) documented in this encounter Discharge Disposition Disposition Code Departure Means Destination Comment s Home or Self Care Went over d/c instructions with patient. Voiced understanding about calling cardiology precious. Went over red flags/reasons to return back to ED. There we were no further questions at this time and pt ambulated out of department without difficulty. documented in this encounter Progress Notes * Ginger Steven RN - 12/26/2024 5:57 PM EST Pt reports mid sternal chest pain started yesterday . Pt reports pain started during normal adl . Pt reports pain comes and goes and is associated with sob when she has the pain . Pain is dull and attimes pt can feel heaviness l arm. Pt was here yesterday for the same but did not wait to be seen * Mamadou Ford MD - 12/26/2024 5:26 PM EST Emergency Medicine Note Patient Name: [place] Mayo Initial Evaluation: 12/26/2024 : 1985 Patient's PCP: Pcp Unknown Physician Emergency Physician: Mamadou Ford MD History of Present Illness Chief Complaint: Chief Complaint Patient presents with ??? Chest Pain Pt was here last night, pt reports chest pain is worsening and it radiates to her left hand. HPI: This is a 39-year-old female who presents with chest pain and palpitations. She states she hasa history of some sort of cardiac arrhythmia/condition that she had in [place] she follows with a tree surgeon. States she feels some chest pain with deep breaths has had chest pain on and off sinceyesterday. Comes and goes she does not take any medications there is a questionable history of asthm a. Questionable history of anxiety. No tree surgeon here no primary doctor has been [place] the country about 5 months. No cough no fever chills. ROS: I have performed a ROS with the pertinent positives and negatives documented in the history ofpresent illness. Previous History Past Medical History: Diagnosis Date ??? Palpitations History reviewed. No pertinent surgical history. Social History Tobacco Use ??? Smoking status: Never ??? Smokeless tobacco: Never Substance Use Topics ??? Alcohol use: Never ??? Drug use: Never No family history on file. has No Known Allergies. No current facility-administered medications on file prior to encounter. No current outpatient medications on file prior to encounter. Physical Exam ED Triage Vitals Temp Heart Rate Resp BP 12/26/24 1756 12/26/246 12/26/24175512/26/241755 36.7 ??C (98.1 ??F) 97 18 117/74 SpO2 Temp Source Heart Rate Source Patient Position 12/26/24175512/26/24 17512/26/24215512/26/242155 100 % Oral Monitor Sitting BP Location FiO2 (%) 12/26/242155 -- Left arm General: Well-appearing, well nourished, in no acute distress HEENT: PERRL, EOMI, external ears and nose appear unremarkable, airway is patent Neck: Supple, full range of motion, no meningismus, no JVD Chest: Clear to auscultation; no evidence of respiratory distress Circulatory: The rate and rhythm , no murmurs rubs or gallops Abdomen: Non-distended, Non-Tender Extremities: Normal ROM, No edema, ranging all extremities without difficulty Skin: Warm and dry, well-perfused , no rashes Neuro: Alert and oriented x 3. no motor or sensory deficits Psyche: Anxious affect Results Labs Reviewed CBC WITH AUTO DIFFERENTIAL - Abnormal Result Value WBC 9.5 RBC 4.40 Hemoglobin 13.1 Hematocrit 41.0 MCV 92.8 MCH 29.6 MCHC 32.0 RDW 13.0 Platelets 302 MPV 10.4 NRBC 0.0 NRBC Absolute 0.00 Neutrophils Relative 65.2 Lymphocytes Relative 26.2 Monocytes Relative 4.2 Eosinophils Relative 3.5 Basophils Relative 0.5 Immature Granulocytes Relative 0.4 Neutrophils Absolute 6.15 Lymphocytes Absolute 2.48 Monocytes Absolute 0.40 Eosinophils Absolute 0.33 Basophils Absolute 0.05 Immature Granulocytes Absolute 0.04 (*) TROPONIN I HIGH SENSITIVITY - Normal High Sensitivity Troponin I <3 Narrative: High levels of biotin in samples may falsely decrease hsTroponin values. Use caution when interpreting hsTroponin results in patients taking biotin who exhibit renal impairment (eGFR <60) or in patients taking more than 20 mg/day of biotin. LIPASE - Normal Lipase 39 MAGNESIUM - Normal Magnesium 2.3 B-TYPE NATRIURETIC PEPTIDE - Normal BNP 7 CBC AND DIFFERENTIAL Narrative: The following orders were created for panel order CBC and differential. Procedure Abnormality Status --------- ------ CBC auto differential[[id number]] Abnormal Final result Please view results for these tests on the individual orders. TROPONIN I HIGH SENSITIVITY THYROID STIMULATING HORMONE WITH REFLEX TO FREE T4 AND FREE T3 D-DIMER Abnormal Labs Reviewed CBC WITH AUTO DIFFERENTIAL - Abnormal; Notable for the following components: Result Value Immature Granulocytes Absolute 0.04 (*) All other components within normal limits XR Chest 2 Views (Results Pending) I have discussed the incidental/abnormal imaging and/or lab abnormalities with the patient and haveinstructed them the need for further evaluation and workup with their primary care doctor. I have provided the patient with a paper copy of the abnormality. The laboratory results, imaging results and other diagnostic exam results were reviewed in the EMR. EKG Interpretation Critical Care Time None Medical Decision Making Medications LORazepam (ATIVAN) tablet 1 mg (has no administration in time range) aspirin chewable tablet 324 mg (has no administration in time range) ED Course as of 12/27/24 1024 Sat Dec 27, 2024 0613 Reassessed the patient. D-dimer is negative thyroid study is normal [JL] 0917 Patient reassessed her heart rate is not improved after IV fluids. Will defer any rate controlat this time. She was instructed to follow-up with tree surgeon. An outpatient referral for cardiology was placed [JL] ED Course User Index [JL] Mamadou Ford MD Clinical Impressions as of 12/27/24 1024 Palpitations Differential includes anxiety attack, PE, thyrotoxicosis, cardiac arrhythmia, acute coronary syndrome. Procedures Procedures Diagnosis No diagnosis found. Disposition Data Unavailable ED Prescriptions None Physician Attestation Mamadou Ford MD 12/27/24 8684 Mamadou Ford MD 12/27/24 0347 Mamadou Ford MD 12/27/24 1024 documented in this encounter Plan of Treatment Pending Results Name Type Priority Associated Diagnoses Date /Time POC , urine manually resulted Point of Care Testing STAT 12/27/2024 6:10 AM EST Scheduled Orders Name Type Priority Associated Diagnoses Orde r Schedule POC , urine manually resulted Point of Care Testing STAT Once for 1 Occurrences starting 12/27/2024 until 12/27/2024 documented as of this encounter Procedures Procedure Name Priority Date/Time Associated Diagnosis Comments ECG ANNOTATED 12/29/2024 XR CHEST 2 VIEWS STAT 12/27/2024 6:20 AM EST D-DIMER STAT 12/27/2024 4:26 AM EST TROPONIN I HIGH SENSITIVITY STAT 12/26/2024 5:49 PM EST THYROID STIMULATING HORMONE WITH REFLEX TO FREE T4 AND FREE T3 STAT Add-on 12/26/2024 5:49 PM EST CBC WITH AUTO DIFFERENTIAL STAT 12/26/2024 5:49 PM EST CBC AND DIFFERENTIAL STAT 12/26/2024 5:49 PM EST B-TYPE NATRIURETIC PEPTIDE STAT 12/26/2024 5:49 PM EST MAGNESIUM STAT 12/26/2024 5:49 PM EST LIPASE STAT 12/26/2024 5:49 PM EST BASIC METABOLIC PANEL Routine 12/26/2024 5:49 PM EST ECG 12-LEAD STAT 12/26/2024 5:43 PM EST documented in this encounter Results * ECG-Annotated (12/29/2024) Provider Onbase ECG ORDERABLES Final Result * XR Chest 2 Views (12/27/2024 6:20 AM EST) Anatomical Region Laterality Modality Body Radiographic Brit ging 12/27/2024 8:56 AM EST Impressions 12/27/2024 8:57 AM EST No evidence of active pulmonary disease. No significant change from the prior study. -------- FINAL REPORT -------- Dictated By: Haley Paz Dictated Date: 12/27/2024 08:56 ET Assigned Physician: Haley Paz Reviewed and Electronically Signed By: Haley Paz Signed Date: 12/27/2024 08:57 ET Workstation ID: [id number] Transcribed By: Self Edit Transcribed Date: 12/27/2024 08:56 ET Narrative 12/27/2024 8:57 AM EST INDICATION: Chest pain FINDINGS: Two views of the chest were obtained. Compared to study from December 25, 2024. Lung lopez are mildly hypoinflated but clear. Cardiomediastinal silhouette is normal in size and shape. Bony structures are within normal limits for the patient's age. Procedure Note Haley Paz MD - 12/27/2024 INDICATION: Chest pain FINDINGS: Two views of the chest were obtained. Compared to study from2024. Lung lopez are mildly hypoinflated but clear. [...] Signed Date: 12/27/2024 08:57 ET Workstation ID: [id number] Transcribed By: Self Edit Transcribed Date: 12/27/2024 08:56 ET Shakeel Yancey MD IMG XR PROCEDURES Final Result * D-dimer, quantitative (12/27/2024 4:26 AM EST) Pathologist [facility] D-Dimer, Quant (D-DU) 194 <=230 ng/mL DDU LAB COAGULATION METHOD 12/27/2024 5:25 AM [facility] Blood Venous blood specimen / Unknown Venipuncture / Unknown 12/27/2024 4:26 AM EST 12/27/2024 5:04 AM EST [facility] - 12/27/2024 5:25 AM EST D-Dimer <230 ng/mL (D-Dimer units) is the threshold for exclusion of DVT/PE. D-Dimer may be elevated in: Critically ill, severely infected, trauma patients, DIC, acute CVA, acute ND, unstable angina, AF, old age, , and smoking. D-Dimer may be decreased with: Initiation of heparin therapy and oral anticoagulants. us Mamadou Ford MD LAB BLOOD ORDERABLES Final Result [facility] [address] [place] [address], * (ABNORMAL) Basic metabolic panel (12/26/2024 5:49 PM EST) [facility] Sodium 137 133 - 145 mmol/L LAB CHEMISTRY METHOD 12/27/2024 6:37 AM [facility] Potassium 3.8 3.5 - 5.5 mmol/L LAB CHEMISTRY METHOD 12/27/2024 6:37 AM [facility] Chloride 107 96 - 110 mmol/L LAB CHEMISTRY METHOD 12/27/2024 6:37 AM [facility] CO2 21 21 - 32 mmol/L LAB CHEMISTRY METHOD 12/27/2024 6:37 AM [facility] Anion Gap 9 3 - 11 LAB CHEMISTRY METHOD 12/27/2024 6:37 AM [facility] Glucose 126(H) 70 - 100 mg/dL LAB CHEMISTRY METHOD 12/27/2024 6:37 AM [facility] BUN 10 5 - 25 mg/dL LAB CHEMISTRY METHOD 12/27/2024 6:37 AM [facility] Creatinine 0.77 0.50 - 1.10 mg/dL LAB CHEMISTRY METHOD 12/27/2024 6:37 AM [facility] eGFR 100 >=60 mL/min/1. 73m2 LAB CHEMISTRY METHOD 12/27/2024 6:37 AM [facility] Comment:Calculation based on the??Chronic Kidney Disease Epidemiology Collaboration (CKD-EPI) equation refit??without adjustment for race. BUN/Creatinine Ratio 13.0 LAB CHEMISTRY METHOD 12/27/2024 6:37 AM [facility] Calcium 9.3 8.5 - 10.5 mg/dL LAB CHEMISTRY METHOD 12/27/2024 6:37 AM [facility] Blood Venous blood specimen / Unknown Venipuncture / Unknown 12/26/2024 5:49 PM EST 12/26/2024 5:54 PM EST Mamadou Ford MD LAB BLOOD ORDERABLES Final Result [facility] [address] [place] [address], * Thyroid stimulating hormone with reflex to free t4 and free t3 (TSH Reflex) (12/26/2024 5:49 PM EST) TSH 2.90 0.40 - 4.00 mcIU/mL LAB CHEMISTRY METHOD 12/27/2024 4:14 AM [facility] Blood Venous blood specimen / Unknown Venipuncture / Unknown 12/26/2024 5:49 PM EST 12/26/2024 5:54 PM EST Mamadou Ford MD LAB BLOOD ORDERABLES Final Result [facility] [address] [place] [address], * (ABNORMAL) CBC auto differential (12/26/2024 5:49 PM EST) WBC 9.5 4.8 - 10.8 K/mcL LAB HEMETOLOGY METHOD 12/26/2024 6:04 PM [facility] RBC 4.40 3.80 - 4.80 M/mcL LAB HEMETOLOGY METHOD 12/26/2024 6:04 PM [facility] Hemoglobin 13.1 11.5 - 16.0 g/dL LAB HEMETOLOGY METHOD 12/26/2024 6:04 PM [facility] Hematocrit 41.0 35.0 - 47.0 % LAB HEMETOLOGY METHOD 12/26/2024 6:04 PM [facility] MCV 92.8 79.0 - 98.0 FL LAB HEMETOLOGY METHOD 12/26/2024 6:04 PM [facility] MCH 29.6 27.0 - 32.0 pcg LAB HEMETOLOGY METHOD 12/26/2024 6:04 PM [facility] MCHC 32.0 32.0 - 37.0 g/dL LAB HEMETOLOGY METHOD 12/26/2024 6:04 PM [facility] RDW 13.0 11.0 - 15.0 % LAB HEMETOLOGY METHOD 12/26/2024 6:04 PM [facility] Platelets 302 130 - 400 K/mcL LAB HEMETOLOGY METHOD 12/26/2024 6:04 PM [facility] MPV 10.4 7.0 - 11.0 FL LAB HEMETOLOGY METHOD 12/26/2024 6:04 PM [facility] NRBC 0.0 <1.0 % LAB HEMETOLOGY METHOD 12/26/2024 6:04 PM [facility] NRBC Absolute 0.00 <0.10 K/mcL LAB HEMETOLOGY METHOD 12/26/2024 6:04 PM [facility] Neutrophils Relative 65.2 % LAB HEMETOLOGY METHOD 12/26/2024 6:04 PM [facility] Lymphocytes Relative 26.2 % LAB HEMETOLOGY METHOD 12/26/2024 6:04 PM [facility] Monocytes Relative 4.2 % LAB HEMETOLOGY METHOD 12/26/2024 6:04 PM [facility] Eosinophils Relative 3.5 % LAB HEMETOLOGY METHOD 12/26/2024 6:04 PM [facility] Basophils Relative 0.5 % LAB HEMETOLOGY METHOD 12/26/2024 6:04 PM [facility] Immature Granulocytes Relative 0.4 % LAB HEMETOLOGY METHOD 12/26/2024 6:04 PM [facility] Neutrophils Absolute 6.15 1.50 - 7.00 K/mcL LAB HEMETOLOGY METHOD 12/26/2024 6:04 PM [facility] Lymphocytes Absolute 2.48 1.00 - 5.00 K/mcL LAB HEMETOLOGY METHOD 12/26/2024 6:04 PM [facility] Monocytes Absolute 0.40 0.20 - 1.00 K/mcL LAB HEMETOLOGY METHOD 12/26/2024 6:04 PM [facility] Eosinophils Absolute 0.33 0.00 - 0.50 K/mcL LAB HEMETOLOGY METHOD 12/26/2024 6:04 PM [facility] Basophils Absolute 0.05 0.00 - 0.20 K/mcL LAB HEMETOLOGY METHOD 12/26/2024 6:04 PM [facility] Immature Granulocytes Absolute 0.04(H) 0.00 - 0.03 K/mcL LAB HEMETOLOGY METHOD 12/26/2024 6:04 PM EST [facility] Blood Venous blood specimen / Unknown Venipuncture / Unknown 12/26/2024 5:49 PM EST 12/26/2024 5:54 PM EST [facility] BLOOD ORDERABLES Final Resu lt Performing Organization Address [facility] Co de Phone Number [facility] [address] [place] [address], * Troponin I high sensitivity (12/26/2024 5:49 PM EST) [facility] High Sensitivity Troponin I <3 <=54 ng/L LAB CHEMISTRY METHOD 12/26/2024 6:22 PM EST [facility] Blood Venous blood specimen / Unknown Venipuncture / Unknown 12/26/2024 5:49 PM EST 12/26/2024 5:54 PM EST Narrative [facility] - 12/26/2024 6:22 PM EST High levels of biotin in samples may falsely decrease hsTroponin values. ??Use caution when interpreting hsTroponin results in patients taking biotin who exhibit renal impairment (eGFR <60) or in patients taking more than 20 mg/day of biotin. Shakeel Yancey MD LAB BLOOD ORDERABLES Final Resu lt Performing Organization Address City/[facility] Co de Phone Number [facility] [address] [place] [address], [place] [phone] * B-type natriuretic peptide (12/26/2024 5:49 PM EST) [facility] BNP 7 <=100 pcg/mL LAB CHEMISTRY METHOD 12/26/2024 6:33 PM EST [facility] Blood Venous blood specimen / Unknown Venipuncture / Unknown 12/26/2024 5:49 PM EST 12/26/2024 5:54 PM EST us Shakeel Yancey MD LAB BLOOD ORDERABLES Final Resu lt Performing Organization Address City/[facility]/ZIP Co de Phone Number [facility] [address] [place] [address], [place] [phone] * Magnesium (12/26/2024 5:49 PM EST) [facility] Magnesium 2.3 1.9 - 2.6 mg/dL LAB CHEMISTRY METHOD 12/26/2024 6:38 PM EST [facility] Blood Venous blood specimen / Unknown Venipuncture / Unknown 12/26/2024 5:49 PM EST 12/26/2024 5:54 PM EST us Shakeel Yancey MD LAB BLOOD ORDERABLES Final Resu lt Performing Organization Address [facility]/ZIP Co de Phone Number [facility] [address] [place] [address], [place] [phone] * Lipase (12/26/2024 5:49 PM EST) [facility] Lipase 39 13 - 75 unit/L LAB CHEMISTRY METHOD 12/26/2024 6:38 PM EST [facility] Blood Venous blood specimen / Unknown Venipuncture / Unknown 12/26/2024 5:49 PM EST 12/26/2024 5:54 PM EST us Shakeel Yancey MD LAB BLOOD ORDERABLES Final Resu lt Performing Organization Address City/[facility]/ZIP Co de Phone Number [facility] [address] [place] [address], [place] [phone] * ECG 12 lead (12/26/2024 5:43 PM EST) [facility] Ventricular Rate ECG 87 BPM GEMUSE Atrial Rate 87 BPM GEMUSE P-R Interval 144 ms GEMUSE QRS Duration 74 ms GEMUSE Q-T Interval 358 ms GEMUSE QTc 430 ms GEMUSE P Wave [place] 62 degrees GEMUSE R [place] 68 degrees GEMUSE T [place] 53 degrees GEMUSE ECG Interpretation Normal sinus rhythm Normal ECG When compared with ECG of 25-DEC-2024 21:25, (unconfirmed) No significant change was found Confirmed by LIZA LUGO ([id number]) on 12/27/2024 3:21:13 PM GEMUSE 12/26/2024 5:43 PM EST 12/27/2024 3:21 PM EST Shakeel Yancey MD ECG ORDERABLES Final Result GEMUSE documented in this encounter Visit Diagnoses Diagnosis Palpitations- Primary documented in this encounter Administered Medications Inactive Administered Medications - up to 3 most recent administrations Medication Order MAR Action Action Date Dose Rate Site aspirin chewable tablet 324 mg 324 mg, oral, Once, On 12/27/24 at 0343, For 1 dose Given 12/27/2024 4:26 AM EST 324 mg LORazepam (ATIVAN) tablet 1 mg 1 mg, oral, Once, On 12/27/24 at 0343, For 1 dose Given 12/27/2024 4:26 AM EST 1 mg sodium chloride 0.9 % bolus 500 mL 500 mL, intravenous, at 500 mL/hr, Administer over 1 Hours, Once, On 12/27/24 at 0616, For 1 dose New Bag 12/27/2024 6:32 AM EST 500 mL 500 mL/hr documented in this encounter Active and Recently Administered Medications Times are shown in EST. Scheduled Medication Order 12/25/2024 12/26/2024 12/27/2024 aspirin chewable tablet 324 mg (COMPLETED) 324 mg, oral, Once, On 12/27/24 at 0343, For 1 dose 0426 (Given - Provid er: Dominic Schafer RN) LORazepam (ATIVAN) tablet 1 mg (COMPLETED) 1 mg, oral, Once, On 12/27/24 at 0343, For 1 dose 0426 (Given - Provid er: Dominic Schafer RN) sodium chloride 0.9 % bolus 500 mL (COMPLETED) 500 mL, intravenous, at 500 mL/hr, Administer over 1 Hours, Once, On 12/27/24 at 0616, For 1 dose 0632 (New Bag - Prov ider: Dominic Schafer, LISA)[id number] (Stopped - Provider: Donya Guzman RN) documented in this encounter Orders Medications Ordered That Tanvir ht Not Have Been Administered Count Last Ordered Date First Ordered Date metoprolol tartrate (LOPRESS OR) tablet 25 mg 1 12/27/2024 EKG Orders Without Results Count Last Ordered D ate First Ordered Date ECG 12-LEAD 1 12/26/2024 documented in this encounter Care Teams Process Trainer Relationship Specialty Start Date End Date Physician, Pcp Unknown PCP - General 12/27/24 documented as of this encounter
== END 2025-01-12 15:28 | disposition home or self-care (01) ==
PROVIDERS: Visit Provider Internal Medicine Cardiovascular Disease
DX: I47.10 Supraventricular tachycardia, unspecified (principal)
CPT/HCPCS: 93010; 99204

== ENCOUNTER → 2025-01-12 14:38 | Outpatient (BNVA) | payer OTHER, SELFPAY | PROVIDERS: Visit Provider Internal Medicine Cardiovascular Disease | DX: I47.10 Supraventricular tachycardia, unspecified (principal) | CPT/HCPCS: 93005 ==

== ENCOUNTER 2025-10-13 10:26 | Emergency (ER) | payer OTHER, SELFPAY ==
--- NOTE | ~2025-10-13 | XR_ITS ---
EXAMINATION: XR THORACIC SPINE CLINICAL INFORMATION: Fall COMPARISON: None available. TECHNIQUE: 3 views of the thoracic spine were obtained. FINDINGS: There is a trace levoconvex scoliosis, apex at T10. There is a normal kyphosis. There is no subluxation. There is no fracture, compression deformity, or suspicious bone lesion. Disc spaces appear preserved. Facets appear normally aligned. The imaged soft tissues, mediastinal contents, and lungs appear normal. XR/XR thoracic spine 3V IMPRESSION: No acute findings of the thoracic spine. Electronically signed by: Tarun Novoa MD 10/13/2025 11:50 AM [facility]
--- NOTE | ~2025-10-13 | CT_ITS ---
EXAMINATION: CT CERVICAL SPINE WITHOUT CONTRAST CLINICAL INFORMATION: Trauma, fall COMPARISON: None available. TECHNIQUE: Axial imaging was performed from the base of the skull through T2 without IV contrast. Coronal and sagittal reformatted images were generated from the original axial data set. ALARA: The examination used one or more of the following radiation dose reduction techniques: Automated exposure control, iterative reconstruction, and/or adjustment of mA and/or KV. FINDINGS: There is mild reversal of the normal cervical lordosis. No fractures are identified. There is no prevertebral soft tissue swelling. No degenerative changes are evident. CT/CT cervical spine wo IV con IMPRESSION: There is mild reversal of cervical lordosis. This can be related to positioning, muscle spasm, or posterior soft tissue injury. Electronically signed by: Demond Christopher MD 10/13/2025 11:50 AM [facility]
--- NOTE | ~2025-10-13 | XR_ITS ---
EXAMINATION: XR LUMBOSACRAL SPINE CLINICAL INFORMATION: Fall COMPARISON: None available. TECHNIQUE: Three views of the lumbosacral spine. FINDINGS: There is a mild right convex scoliosis. There is a normal lordosis. There is no significant subluxation. There is no compression deformity, fracture, or suspicious bone lesion. There is mild disc degeneration at L5-S1. Disc spaces otherwise preserved. Facets normally aligned with normal appearance. Sacrum appears intact. SI joints appear normal. No soft tissue abnormalities. XR/XR lumbar spine 2-3V IMPRESSION: No acute bony or soft tissue abnormality of the lumbar spine. Electronically signed by: Tarun Novoa MD 10/13/2025 11:51 AM [facility]
--- NOTE | ~2025-10-13 | CT_ITS ---
EXAMINATION: CT HEAD WITHOUT CONTRAST CLINICAL INFORMATION: Fall. COMPARISON: None available. TECHNIQUE: Contiguous axial imaging was performed from the skull base to vertex without intravenous administration of contrast. This CT examination was performed using dose optimization techniques as appropriate, variously including the following: *Automated exposure control *Adjustment of mA and/or kV according to patient size (this includes techniques or standardized protocols for targeted exams where dose is matched to indication/reason for exam; i.e. extremities or head) *Use of iterative reconstruction technique FINDINGS: There is no evidence of acute intracranial hemorrhage or edematous large vessel territorial infarction. No abnormal mass effect or midline shift is seen. Fine to white matter differentiation is well preserved. No abnormal extra-axial fluid collections are identified. The ventricles are normal in size. No abnormal attenuation in the brain parenchyma. No acute calvarial fracture.. Mild left maxillary and sphenoid sinus mucosal thickening. Mastoid air cells are well-aerated. CT/CT head/brain wo IV con IMPRESSION: No CT evidence of acute intracranial hemorrhage. Mild left maxillary and sphenoid sinus mucosal thickening. Electronically signed by: Td Gordon MD 10/13/2025 11:57 AM [facility]
[2025-10-13 11:08] VITALS: BP 110/68; PULSE 91; RESP 18; TEMP 36.4; O2SAT 100; BMI 23.5
--- NOTE | 2025-10-13 11:12 | ED.GENADULT ---
HPI - General Adult General Chief complaint: Head Injury Stated complaint: Fall Time Seen by Provider: 10/13/25 11:56 Source: patient, old records reviewed and oncology physician Mode of arrival: ambulatory Limitations: no limitations History of Present Illness ED Provider: KHADIJAH FAUSTIN narrative: 39-year-old female with past medical history of SVT she does not take any blood thinners. She comes in after slipping on ice near her house today. She hit the back of her head she states she does not think she had a loss of consciousness but she does have some mild amnesia to the event. She states it took her a long time to get her memory back. She does not have any nausea or vomiting. She has never had a head injury before. She did not take any medications prior to arrival. She does have some pain in the low back as well. She is able to remember the events much better. She is not confused during the history. MD complaint: Fall Onset (ago): minute(s) (Prior to arrival) Location: head, neck and back Radiation: non-radiation Severity: moderate Quality: aching Pain Consistency: constant Relieving factors: none Exacerbating factors: movement Associated symptoms: denies other symptoms Treatments prior to arrival: none Related Data Previous Rx's ?Medication ?Instructions ?Recorded verapamil 40 mg tablet 40 mg PO BID PRN for palpitations 02/16/25 #60 tabs cyclobenzaprine 10 mg tablet 10 mg PO TID PRN muscle spasm #20 10/13/25 tabs ondansetron 4 mg disintegrating 4 mg PO Q8H PRN nausea and 10/13/25 tablet vomiting #20 tabs Allergies Allergy/AdvReac Type Severity Reaction Status Date / Time iburpofen Allergy Severe Swelling Uncoded 10/13/25 11:11 Review of Systems Review of Systems: Yes all other systems are reviewed and are negative PMFSH Past Medical History Attestation statement: The following information was validated with the patient. Source: old records reviewed Medical History (Updated 10/14/25 @ 00:01 by Booker Lau) Appendix abscess Family History Family History (Updated 01/12/25 @ 14:52 by Joanna Maki CMA) Father Stented coronary artery Social History Social History Alcohol intake: never Patient Tobacco Use Status: Never used Tobacco Advance Directives: No Advance Directives Information Provided: Yes Physical Exam ED Vital Signs: Vital Signs - 24 hr 10/13/25 12:51 Temperature 97.6 F Pulse Rate 91 Respiratory Rate 18 Blood Pressure 110/68 Pulse Oximetry 100 Oxygen Delivery Method Room Air BMI result Body Mass Index 23.5 Appearance: Alert. Oriented X3. No acute distress. Eyes: Pupils equal, round and reactive to light. ENT: Pharynx normal. There is a contusion on the posterior scalp. There is no sun or raccoon sign. Neck: Normal inspection. Neck supple. CVS: Normal heart rate and rhythm. Pulses normal. Respiratory: No respiratory distress. Breath sounds normal. Abdomen: Soft and nontender. Skin: Skin warm and dry. Normal skin color. Normal skin turgor. Extremities: No lower extremity edema. No calf ttp Neuro: Oriented X 3. No motor deficit. No sensory deficit. Steady gait Course Course Course Narrative: RME: 39-year-old female presents to ED for headache, posterior neck pain and back pain after falling slipping on ice backwards and hitting head. Patient states she lost consciousness. Patient denies any chest pain shortness of breath abdominal pain. Images ordered. Patient has parietal/occipital hematoma Medications Administered Discontinued Medications Generic Name Dose Route Start Last Admin Trade Name Freq PRN Reason Stop Dose Admin Acetaminophen 975 mg 10/13/25 11:12 10/13/25 11:20 Acetaminophen 325 Mg Tablet PO 10/13/25 11:13 975 mg ONCE ONE Administration Medical Decision Making Medical Decision Making [facility] Narrative: 39-year-old female with history of SVT not on blood thinners now here with complaint of head injury and back pain following a mechanical slip and fall on ice. She is GCS 15 on arrival in the ED. But she reports a possible brief LOC versus mild amnesia to the event that has improved. She will get CT scans of the head and C-spine. As well as x-rays of the spine. I see no neuro deficits. If workup is negative will treat as a concussion and started on supportive medications Differential Diagnosis Differential Diagnoses: The differential diagnosis associated with the presentation includes Concussion, head injury, back strain, neck strain Admission/Observation Consideration of admission/observation: Escalation of care including admission/observation considered Trauma studies are negative and she is GCS 15 at this time stable for DC Independent Interpretation I performed an independent interpretation of an: Plain X-Ray (No trauma) and CT Scan (No trauma) Radiology Impression Discussion of test interpretation with radiology: I have reviewed the radiologist's reading. External Record Review External record reviewed: Outpatient record Prescription Management I considered prescription management with: Other Discharge Plan Discharge Clinical Impression: Closed head injury, Concussion without loss of consciousness Patient Disposition: Home, Self-Care Instructions: Concussion (ED), Head Injury (ED) Additional Instructions: at this time your CT scans are normal no signs of trauma - head and neck xrays of your back show no broken bones rest and stay hydrated brain rest for 1 week - no screens, exercise, reading that causes headaches return for worsening symptoms, unable to eat or drink or any other concerns Prescriptions: New cyclobenzaprine 10 mg tablet 10 mg PO TID PRN (Reason: muscle spasm) Qty: 20 0RF ondansetron 4 mg tablet,disintegrating 4 mg PO Q8H PRN (Reason: nausea and vomiting) Qty: 20 0RF No Action verapamil 40 mg tablet 40 mg PO BID PRN (Reason: for palpitations) Qty: 60 1RF Interventions: ED Discharge Assessment Last Done: 10/13/25 12:51 Discharge Date/Time: 10/13/25 12:14 Print Language: Slovenian
[2025-10-13 12:51] VITALS: BP 110/68; PULSE 91; RESP 18; TEMP 36.4; O2SAT 100
== END 2025-10-13 12:14 | disposition home or self-care (01) ==
LOC: HO.ED 12:24
PROVIDERS: Emergency Provider Emergency Medicine; PCP Internal Medicine
DX: S06.0X1A Concussion with loss of consciousness of 30 minutes or less, initial encounter (principal); W00.0XXA Fall on same level due to ice and snow, initial encounter; Y93.89 Activity, other specified; Y92.89 Other specified places as the place of occurrence of the external cause; Y99.8 Other external cause status
CPT/HCPCS: 70450; 72072; 72100; 72125; 99283; 99284

== ENCOUNTER → 2025-10-13 11:10 | Outpatient (BNV) | payer OTHER, SELFPAY | PROVIDERS: Emergency Provider Emergency Medicine; Visit Provider Radiology Diagnostic Ultrasound | DX: J34.89 Other specified disorders of nose and nasal sinuses (principal); Z04.3 Encounter for examination and observation following other accident | CPT/HCPCS: 70450; 72072; 72100; 72125 ==